=== PATIENT | female | born 1985 | race Caucasian/White ===

== ENCOUNTER 2024-06-06 13:30 | Emergency (ER) | payer SELFPAY ==
[~2024-06-06] VITALS: Ht 170.2 cm; Wt 61.4 kg
[2024-06-06 13:41] VITALS: TEMP 98.9
[2024-06-06 14:13] VITALS: BP 123/82; PULSE 82
== END 2024-06-06 14:16 | disposition home or self-care (01) ==
LOC: COL.ER 13:30
DX: S81.031A Puncture wound without foreign body, right knee, initial encounter (principal); F17.210 Nicotine dependence, cigarettes, uncomplicated; X58.XXXA Exposure to other specified factors, initial encounter

== ENCOUNTER 2024-08-10 09:13 | Emergency (ER) | payer SELFPAY ==
[~2024-08-10] VITALS: Ht 170.2 cm; Wt 68.2 kg
[2024-08-10 09:19] VITALS: TEMP 97.6
[2024-08-10] MEDS ORDERED: Pantoprazole 40 MG in NS 10 ML IV ONE (09:45)
[2024-08-10] MEDS ORDERED: NS 1,000 ML IV ONE (09:45)
[2024-08-10] MEDS ORDERED: Ondansetron 4 MG/2 ML VIAL IV ONE ×2 (09:45→13:00)
[2024-08-10] MEDS ORDERED: Morphine 4 MG/ML VIAL IV ONE ×2 (09:45→13:00)
[2024-08-10 10:07] LABS: BASO # 0.1 K/mm3 (0.0-0.2); BASO % 0.4 % (0.0-2.0); EOS # 0.1 K/mm3 (0.0-0.7); EOS % 0.6 % (0.0-4.0); GRAN # 8.9 K/mm3 (1.4-6.5); GRAN % 79.4 % (42.2-75.2); HEMATOCRIT 39.9 % (37.0-47.0); HEMOGLOBIN 13.9 g/dl (12.5-16.0); LYMPH # 1.4 K/mm3 (1.2-3.4); LYMPH % 12.2 % (20.0-51.0); MEAN CELL VOLUME 88 fl (80.0-100.0); MEAN CORPUSCULAR HEMOGLOBIN 31 pg (27-31); MEAN CORPUSCULAR HGB CONC 35 g/dl (33.0-37.0); MEAN PLATELET VOLUME 9.3 fl (7.4-10.4); MONO # 0.8 K/mm3 (0.1-0.6); MONO % 7.1 % (1.7-9.3); PLATELET COUNT 317 K/mm3 (130-400); RED BLOOD COUNT 4.52 M/mm3 (4.10-5.30); REDCELL DISTRIBUTION WIDTH-CV 12.3 % (11.5-14.5)
[2024-08-10 10:22] LABS: ALANINE AMINOTRANSFERASE 16 U/L (0-55); ALBUMIN 4.2 g/dL (3.5-5.0); ALKALINE PHOSPHATASE 69 U/L (40-150); ANION GAP 13 mmol/L (7-16); AST,SGOT 26 U/L (5-34); BILIRUBIN,TOTAL 0.5 mg/dL (0.2-1.2); BLOOD UREA NITROGEN 10 mg/dL (7-19); C-REACTIVE PROTEIN 0.26 mg/dL (0.00-0.50); CALCIUM 9.5 mg/dL (8.4-10.2); CHLORIDE 103 mEq/L (98-107); CREATININE, serum 0.84 mg/dL (0.57-1.11); GLUCOSE 99 mg/dL (70-99); LIPASE 28 U/L (8-78); MAGNESIUM 1.9 mg/dL (1.6-2.6); SODIUM 137 mEq/L (136-145); TOTAL PROTEIN 7.8 g/dl (6.2-8.1)
[2024-08-10 10:31] LABS: TROPONIN-I < 0.010 ng/mL (0.00-0.033)
[2024-08-10] MEDS ORDERED: Iohexol 300 - 100 ML VIAL IV ONE (10:36)
[2024-08-10] MEDS ORDERED: NS 100 ML IV ONE (10:36)
[2024-08-10 11:44] LABS: COLLECTION METHOD CLEAN CATCH
[2024-08-10 11:56] LABS: PH 5.5 (5.0-8.5); URINE APPEARANCE CLEAR (CLEAR/HAZY); URINE BLOOD NEGATIVE (NEGATIVE); URINE COLOR YELLOW (YELLOW); URINE GLUCOSE NEGATIVE (NEGATIVE); URINE KETONE 1+ (NEGATIVE); URINE NITRATE POSITIVE (NEGATIVE); URINE PROTEIN(semi-quant) TRACE (NEGATIVE); URINE UROBILINOGEN 0.2 E.U/dL (0.2-1.0)
[2024-08-10] MEDS ORDERED: Sulfamethoxazole/Trimethoprim 800-160 MG TAB PO ONE (13:00)
[2024-08-10 14:51] VITALS: BP 128/88; PULSE 50
[2024-08-10] MEDS ORDERED: BACTRIM DS 8001 TAB PO (14:59)
[2024-08-10] MEDS ORDERED: ZOFRAN ODT4 MG PO (14:59)
[2024-08-10] MEDS ORDERED: PROTONIX 40MG T40 MG PO (14:59)
[2024-08-18] MEDS ORDERED: BACTRIM DS 8001 TAB PO (22:04)
== END 2024-08-10 15:16 | disposition home or self-care (01) ==
LOC: COL.ER 09:13
PROVIDERS: Emergency Medicine
DX: R07.89 Other chest pain (principal); R10.12 Left upper quadrant pain; N39.0 Urinary tract infection, site not specified; F17.210 Nicotine dependence, cigarettes, uncomplicated
CPT/HCPCS: J2270; J2405; J2470; J7030; Q9967